=== PATIENT | female | born 1935 | race Caucasian/White ===

== ENCOUNTER 2021-10-29 06:21 | Day surgery (SDC) | payer OTHER ==
[~2021-10-29] VITALS: Ht 157.5 cm; Wt 51.3 kg
--- NOTE | ~2021-10-29 | O ---
[facility] [place] [address] OPERATIVE REPORT Name: ROSALINA CRAVEN Room #: 150-3 [facility] M.R.#: [id number] Admission: 10/29/21 Attend Phys: Juan Jose Lyman MD Discharge: Date of : 33 Report #: [id number] THIS REPORT FOR: cc: Tricia Theodore MD,Tricia Lyman,Juan Jose Pritchett MD ~ cc: Dmitriy Ponce MD, Tricia Theodore, DATE OF SERVICE: 10/29/2021 PREOPERATIVE DIAGNOSIS: Basal cell carcinoma of right lower lid and cheek. POSTOPERATIVE DIAGNOSIS: Basal cell carcinoma of right lower lid and cheek. PROCEDURE: Excision of basal cell carcinoma, right lower lid and cheek with myocutaneous flap repair of defect. SURGEON: Juan Jose Lyman MD SUPPORT MANAGER: None. ANESTHESIA: MAC. COMPLICATIONS: None. INDICATIONS FOR SURGERY: This pleasant 86-year-old woman has a biopsy proven basal cell carcinoma in her right lower lid. She presents today for excision of this lesion with frozen section control of tumor extirpation and subsequent reconstruction. Informed consent was obtained to include but not limited to the potential risk for loss of vision, bleeding, infection, failure to improve the problem, the potential need for further surgery or treatment. DESCRIPTION OF PROCEDURE: The patient was taken to the operating room where 2% Xylocaine with epinephrine mixed with equal parts 0.75% Marcaine with Wydase was administered transcutaneously to the right lower lid, the right cheek, the right lateral nasal wall and the right infratemporal fossa. The patient was subsequently prepped and draped in the usual sterile fashion. A fine tip skin marking pen was then utilized to outline the lesion including approximately 2 mm of normal appearing tissue. This included all of the prior biopsy site and all of the lesion to be macroscopically visible. The incisions were then made with a 15C blade and dissected down into buccal fat. The lesion was then oriented on a drawing for the waiting pathologist as hemostasis was achieved in the field. She snap froze the tissue and she felt that the margins were clear. [address] [address] OPERATIVE REPORT Name: ROSALINA CRAVEN Room #: 150-3 [facility] M.R.#: [id number] Admission: 10/29/21 Attend Phys: Juan Jose Lyman MD Discharge: Date of : 33 Report #: [id number] Reconstruction options were considered and a myocutaneous flap was chosen to be rotated from lateral. A relaxing incision made directed superotemporally and the undermining was undertaken to allow the flap to be mobilized. The flap was then advanced and secured with multiple interrupted buried Vicryl sutures deep. Skin closure was accomplished parallel to the nasojugal fold with 6-0 plain gut sutures. The wounds were then cleaned and dressed with erythromycin ophthalmic ointment. The patient was subsequently transported to the recovery area having tolerated the procedures well with no anesthetic or operative complications being noted. By: 0811 Juan Jose Lyman MD /nt
[~2021-10-29 06:21] MED LIST: ASA81BEC PO; BEPOTASTINE OPHTHALMIC; CHLORTHALIDONE25 MG PO; COQ-10100 MG PO; HYDRALAZINE 5050 MG PO; PRINIVIL20 MG PO; ROSUVASTATIN CA10 MG PO; VITAMIN D325 MC3 PO
[2021-10-29 08:00] VITALS: BP 108/63
--- NOTE | 2021-10-30 18:06 | PATH ---
[facility] [place] [address] PATHOLOGY RPT PROCEDURE Name: ROSALINA CRAVEN SHONA Room #: DEP [facility] M.R.#: [id number] Admission: 10/29/21 Date of : 33 Discharge: 10/29/21 Report #: [id number] Path Case #: [id number] [facility] Accession Number: [id number] . 01 Material submitted: . eyelid - RIGHT LOWER LID BASAL CELL CARCINOMA-FS. Modifiers: right, lower . 01 Clinical history: . BASAL CELL CARCINOMA OF SKIN OF LOWER RIGHT EYELID, INCLUDING CANTHUS EXCISION BASAL CELL CARCINOMA 1.2X0.5X0.5CM NEGATIVE FOR MALIGNANCY . 02 Frozen section diagnosis: . FROZEN SECTION DIAGNOSIS: FSA1. Right lower lid BCC, excision: - Negative for malignancy. . The report was given to Dr. Lyman by Dr. Raygoza at [facility] on 10/29/2021 and a written report is placed in the patient's chart. . FROZEN SECTION GROSS DESCRIPTION: The specimen is received labeled with the patient's name and "right lower lid basal cell carcinoma" and consists of a skin ellipse which measures 1.2 x 0.5 x 0.5 cm. The specimen is oriented per surgeon as superior, medial, inferior, and lateral margins. The superior to inferior margin is inked black. The inferior to lateral margin is inked blue and the lateral to superior margin is inked red. The specimen is serially sectioned and rendered for frozen section diagnosis entirely in block FSA1 and subsequently in formalin in block A1. (ANK:anais; 10/29/2021) . Frozen section performed at [facility], [address] , [place] [address]. SHANTHIK/QTP . 03 Diagnosis: Skin and subcutaneous tissue, right lower eyelid: - Focal scarring and chronic inflammation - no residual basal cell carcinoma identified. - Inked margins of excision free of neoplasm. (JPM/db; 10/30/2021) LBQ 10/30/2021 1534 Local . 03 Electronically signed: . Yoni Simon MD, Pathologist NPI- [id number] [facility] [address] [place] [address] PATHOLOGY RPT PROCEDURE Name: ROSALINA CRAVEN Room #: DEP [place] Nando#: [id number] Admission: 10/29/21 Date of : 33 Discharge: 10/29/21 Report #: [id number] Path Case #: [id number] . 01 Gross description: . SEE FROZEN SECTION FOR GROSS DESCRIPTION /QTP 10/29/2021 1151 Local . 03 Pathologist provided ICD-10: C44.1122 . 03 CPT . 625368, [id number] Specimen Comment: A courtesy copy of this report has been sent to [phone] Specimen Comment: [phone] Specimen Comment: Report sent to / DR HAMMOND Performed at: [facility] [address] [facility] [address], [place] [id number] MD Ousmane Neal MD Phone: [phone] Performed at: [facility] [address] [place], [place] [id number] MD Britney Brizuela MD Phone: [phone] Performed at: 03 [facility] [address] [place], [place] [id number] MD Yoni Simon MD Phone: [phone]
== END 2021-10-29 09:55 | disposition home or self-care (01) ==
LOC: OR 06:21 → TBA 06:22 → OR 09:36
PROVIDERS: ATTEND Ophthalmology
DX: H01.8 Other specified inflammations of eyelid (principal); H02.59 Other disorders affecting eyelid function; I10 Essential (primary) hypertension; E78.00 Pure hypercholesterolemia, unspecified; Z98.890 Other specified postprocedural states; Z79.899 Other long term (current) drug therapy; Z95.1 Presence of aortocoronary bypass graft; Z20.822 Contact with and (suspected) exposure to COVID-19; Z90.710 Acquired absence of both cervix and uterus; Z90.49 Acquired absence of other specified parts of digestive tract; Z88.0 Allergy status to penicillin; Z88.6 Allergy status to analgesic agent
CPT/HCPCS: 50010; 50101; 50386; 50398; 51636; 62110; 62850; 70005